=== PATIENT | female | born 1990 | race Caucasian/White ===

== ENCOUNTER 2020-08-23 23:43 | Emergency (ER) | payer BC ==
[~2020-08-23] VITALS: Ht 162.6 cm; Wt 72.0 kg
[2020-08-23 23:50] VITALS: BP 120/73
--- NOTE | 2020-08-24 00:05 | PHYS DOC ---
Adult General HPI HPI Patient is a 30-year-old female who presents with lightheadedness, syncope and vomiting. States she was out camping with her boyfriend, and they were drinking margaritas and she tried mushrooms for the first time. States that this was about 6 hours ago. States she had the episode of lightheadedness and vomiting about an hour ago. States her boyfriend brought her in because he was worried. States she feels well now. States that she was getting into the car, felt lightheaded, and nauseous, threw up and passed out. Boyfriend states that she woke up about 30 or 45 seconds later asking what it happened. Denies any headache, change in vision, chest pain, shortness of breath, abdominal pain, other nausea or vomiting since the episode, dysuria, diarrhea. Denies any trouble ambulating. Denies any numbness/weakness/tingling. States that here in the emergency department she feels more embarrassed than anything and has no other symptoms currently. Review of Systems Review of Systems Review of systems otherwise unremarkable except noted by HPI Physical Exam Physical Exam Constitutional: Well developed, well nourished, no acute distress, non-toxic appearance. [] HENT: Normocephalic, atraumatic, bilateral external ears normal, oropharynx moist, no oral exudates, nose normal. [] Eyes: PERRLA, EOMI, conjunctiva normal, no discharge. [] Neck: Normal range of motion, no tenderness, supple, no stridor. [] Cardiovascular:Heart rate regular rhythm, no murmur [] Lungs & Thorax: Bilateral breath sounds clear to auscultation [] Abdomen: soft, no tenderness, no masses, no pulsatile masses. [] Skin: Warm, dry, no erythema, no rash. [] Extremities: No tenderness, no cyanosis, no clubbing, ROM intact, no edema. [] Neurologic: Alert and oriented X 3, normal motor function, normal sensory function, no focal deficits noted. [] Psychologic: Affect normal, judgement normal, mood normal. [] Current Patient Data Lab Results Laboratory Tests Test 08/23/20 23:53 Glucose (Fingerstick) 132 mg/dL (70-99) H EKG EKG Rate of 69, QRS 82, QTc 428, no STEMI [] Radiology/Procedures Radiology/Procedures [] Heart Score C/O Chest Pain: No Risk Factors: Risk Factors: DM, Current or recent (<one month) smoker, HTN, HLP, family history of CAD, obesity. Risk Scores: Risk Factors: DM, Current or recent (<one month) smoker, HTN, HLP, family history of CAD, obesity. Course & Med Decision Making Course & Med Decision Making Patient is a 30-year-old female who presents with lightheadedness and nausea vomiting after drinking some margaritas and eating mushrooms Vital signs not concerning. Physical exam noted above. Patient alert oriented no acute distress. No focal neurologic deficits appreciated. Patient otherwise asymptomatic in the ED. Patient greater than 6 hours out from mushroom ingestion. EKG noted above and normal. Laboratory analysis not concerning. On reassessment patient stated she was feeling much better and was ready to be discharged home. Recommended ceasing of substance use. Advised to call primary care physician first thing Tuesday to discuss ED visit and set up a follow-up. Gave strict return precautions to the ED. Family grateful, verbalized understanding and agreed with plan of discharge.. [] Dragon Disclaimer Dragon Disclaimer This electronic medical record was generated, in whole or in part, using a voice recognition dictation system. Departure Departure: Impression: Primary Impression: Lightheaded Additional Impression: Nausea & vomiting Disposition: 01 DC HOME SELF CARE/HOMELESS Condition: GOOD Referrals: PCP,NO (PCP) Patient Instructions: Nontoxic Ingestion Additional Instructions: Please read all the attached information. Please refrain from ingesting any more substances. Please contact your primary care physician as soon as you can to update on ED visit and set up a follow-up as needed. Please come back to the ED with new or concerning symptoms as discussed. Problem Qualifiers CYNTHIA GARCIA MD Aug 24, 2020 00:05
[2020-08-24] MEDS ORDERED: [UNRECOGNIZED DRUG - OTHER] (00:07)
[2020-08-24 00:40] LABS: BASO % 0 % (0-3); EOS # 0.1 x10^3/uL (0.0-0.7); EOS % 1 % (0-3); HEMATOCRIT 41.2 % (36.0-47.0); HEMOGLOBIN 13.8 g/dL (12.0-15.5); LYMPH # 1.3 x10^3/uL (1.0-4.8); LYMPH % 17 % (24-48); MEAN CORPUSCULAR HEMOGLOBIN 31 pg (25-35); MEAN CORPUSCULAR HGB CONC 33 g/dL (31-37); MEAN CORPUSCULAR VOLUME 93 fL (79-100); MONO # 0.6 x10^3/uL (0.0-1.1); MONO % 7 % (0-9); NEUT # 5.8 x10^3uL (1.8-7.7); NEUT % 75 % (31-73); PLATELET COUNT 198 x10^3/uL (140-400); RED BLOOD COUNT 4.44 x10^6/uL (3.50-5.40); RED CELL DISTRIBUTION WIDTH 12.7 % (11.5-14.5); WHITE BLOOD COUNT 7.7 x10^3/uL (4.0-11.0)
[2020-08-24 00:49] LABS: CREATININE 0.7 mg/dL (0.6-1.0); GFR 99.6; POTASSIUM 3.8 mmol/L (3.5-5.1)
--- NOTE | 2020-08-24 01:43 | EKG ---
[address] [address] Test Date: 2020-08-24 Test Time: 00:02:51 Pat Name: KIERSTEN CARMONA Department: Room: Gender: F [employer]: : 1990 Requested By: CYNTHIA GARCIA Order Number: [id number] Reading MD: Measurements Intervals [place] Rate: 69 P: 55 ME: 110 QRS: 49 QRSD: 82 T: 43 QT: 394 QTc: 428 Interpretive Statements SINUS RHYTHM NORMAL ECG RI6.02 No previous ECG available for comparison
== END 2020-08-24 01:04 | disposition home or self-care (01) ==
LOC: ER 23:43
DX: R42 Dizziness and giddiness (principal); R11.2 Nausea with vomiting, unspecified; R55 Syncope and collapse
CPT/HCPCS: 36415; 80048; 81025; 82947; 85025; 93005; 99284